=== PATIENT | female | born 1950 | race Caucasian/White ===

== ENCOUNTER 2025-04-21 09:27 | Emergency (ER) | payer MEDICARE, SELFPAY ==
--- OUTSIDE RECORDS SUMMARY | 2025-02-20 06:36 | XMS_ITS | Continuity of Care Document ---
Author Organization [facility]. If a dditional information is needed, contact Health Information Management at [phone] Address [address] [place] [address] Phone Care Team Providers Care Data Typist Name Role Phone Unavailable Unavailable Unavailable Unavailable Unavailable Unavailable Unavailable Unavailable Unavailable Unavailable Unavailable Unavailable Unavailable Unavailable Unavailable Unavailable Unavailable Unavailable Unavailable Unavailable Unavailable Unavailable Unavailable Unavailable Unavailable Unavailable Unavailable Unavailable Unavailable Unavailable Unavailable Unavailable Unavailable Unavailable Unavailable Unavailable Unavailable Problems Urinary tract infectious disease Onset:01-Apr-2023 Sebas Barber DO Comments:Onset Date: [id number] Unspecified contact dermatitis due to plants, except food Onset:23-Aug-2018 Nausea and vomiting Onset:13-May-2017 BRAAR Diarrhea Onset:13-May-2017 BRAAR Abdominal pain Onset:13-May-2017 BRAAR Essential (primary) hypertension Type 2 diabetes mellitus Disorder of thyroid, unspecified Allergies and Adverse Reactions Sulfamethoxazole(Allergy) Onset: 05-Sep-2023 Reaction:RASH Augmentin(Allergy) Onset: 20-Apr-2019 Reaction:severe yeast inf Augmentin(Allergy) Onset: 20-Apr-2019 Reaction:severe yeast inf Augmentin(Allergy) Onset: 20-Apr-2019 Reaction:severe yeast inf Augmentin(Allergy) Onset: 20-Apr-2019 Reaction:severe yeast inf Augmentin(Allergy) Onset: 20-Apr-2019 Reaction:severe yeast inf Augmentin(Allergy) Onset: 20-Apr-2019 Reaction:severe yeast inf Augmentin(Allergy) Onset: 20-Apr-2019 Reaction:severe yeast inf Augmentin(Allergy) Onset: 20-Apr-2019 Reaction:severe yeast inf trimethoprim(Allergy) Onset: 13-May-2017 Reaction:UNKNOWN Cipro(Allergy) Bactrim(Allergy) Reaction:Hives Bactrim(Allergy) Reaction:rash/hives Ciprofloxacin 250 MG Oral Ta blet [Cipro](Allergy) Reaction:yeast infection Medications 1 ML denosumab 60 MG/ML Prefilled Syringe [Prolia];60 MILLIGRAM TODAY Quantity:1 Raymond Lewis Maria R YANGN Start:[id number]:2024 Comments:[id number] Loratadine;10 MG Orally Once a day, 1 tablet Quantity:30 TRISTON SMITH Start:21-Jan-2025 Comments:10 MG Orally Once a day, 1 tablet 120 ACTUAT Fluticasone propionate 0.05 MG/ACTUAT Nasal Inhaler;50 MCG/ACT Nasally Once a day, 1 spray in each nostril Quantity:1 TRISTON SMITH Start:21-Jan-2025 Comments:50 MCG/ACT Nasally Once a day, 1 spray in each nostril Arexvy;120 MCG/0.5ML Intramuscular , as directed ok to subsitute with abrysvo Quantity:1 TRISTON SMITH Start:24-Jan-2024 Comments:120 MCG/0.5ML Intramuscular , as directed ok to subsitute with abrysvo Scopolamine;1 MG/3DAYS Transdermal , 1 patch to skin as needed Quantity:9 TRISTON SMITH Start:10-Nov-2023 Comments:1 MG/3DAYS Transdermal , 1 patch to skin as needed simvastatin 5 MG Oral Tablet Start:05-Sep-2023 aspirin 81 MG Chewable Tablet;81 MILLIGRAM PO DAILY Start:05-Sep-2023 Comments:81 MG PO DAILY losartan potassium 100 MG Oral Tablet [Cozaar];100 MILLIGRAM PO DAILY Start:05-Sep-2023 Comments:100 MG PO DAILY cephalexin 500 MG Oral Capsule;500 MILLIGRAM PO QID Start:01-Apr-2023 Status:Discontinued Comments:500 MG PO QID cephalexin 500 MG Oral Capsule;500 MILLIGRAM PO QID Start:01-Apr-2023 Status:Discontinued Comments:500 MG PO QID Betamethasone 0.5 MG/ML / Clotrimazole 10 MG/ML Topical Cream;1-0.05 % Externally Twice a day, 1 application to affected area Quantity:60 TRISTON SMITH Start:18-Dec-2018 Status:Inactive Comments:1-0.05 % Externally Twice a day, 1 application to affected area Acyclovir;400 MG Orally BID, 1 tablet Quantity:20 TRISTON SMITH Start:24-Nov-2018 Status:Inactive Comments:400 MG Orally BID, 1 tablet Amoxicillin 500 MG / Clavulanate 125 MG Oral Tablet [Augmentin];500-125 MG Orally BID, as directed Quantity:14 TRISTON SMITH Start:14-Nov-2018 Status:Inactive Comments:500-125 MG Orally BID, as directed NITROFURANTOIN, MACROCRYSTALS 25 MG / Nitrofurantoin, Monohydrate 75 MG Oral Capsule;100 MG Orally every 12 hrs, 1 capsule with food Quantity:14 TRISTON SMITH Start:07-Nov-2018 Status:Inactive Comments:100 MG Orally every 12 hrs, 1 capsule with food {10 (predniSONE 10 MG Oral Tablet) } Pack;prednisone Quantity:30 Refills:0 tablets by mouth as directed Anuel Powers Start:23-Aug-2018 Status:Inactive triamcinolone acetonide 5 MG/ML Topical Cream;0.5 % TOPICAL 12h Quantity:30 Refills:0 1 application apply on the skin twice a day Anuel Powers Start:23-Aug-2018 Status:Inactive Prilosec OTC;20 MG Orally Once a day, 1 tablet Quantity:90 TRISTON SMITH Start:20-Jun-2018 Comments:20 MG Orally Once a day, 1 tablet OneTouch Verio;- In Vitro Daily E11.65, as directed TRISTON SMITH Start:31-Mar-2018 Status:Inactive Comments:- In Vitro Daily E11.65, as directed Moe XR;50-1000 MG Orally Once a day, 2 tablets with evening meal TRISTON SMITH Start:31-Mar-2018 Status:Inactive Comments:50-1000 MG Orally Once a day, 2 tablets with evening meal levothyroxine sodium 0.075 MG Oral Tablet;75 MICROGRAM PO DAILY@0600 Start:13-Dec-2017 Comments:75 MCG PO DAILY@0600 amLODIPine 10 MG Oral Tablet;10 MILLIGRAM PO DAILY Start:13-Dec-2017 Comments:10 MG PO DAILY Nystatin;382222 UNIT/GM Externally Twice a day, 1 application to affected area Quantity:1 TRISTON SMITH Start:07-Nov-2017 Status:Inactive Comments:[id number] UNIT/GM Externally Twice a day, 1 application to affected area Vitamin B12;1000 MCG Orally Once a day, 1 tablet TRISTON SMITH Comments:1000 MCG Orally Onc e a day, 1 tablet Benefiber;- Orally , as directed TRISTON SMITH Status:Inactive Comments:- Orally , as directed POLYETHYLENE GLYCOL 3350 142 MG/ML Oral Solution [Miralax];- Orally , as directed TRISTON SMITH Comments:- Orally , as direc jaylen Loratadine Allergy Relief;orally QD, 1 tab(s) TRISTON SMITH Status:Inactive Comments:orally QD, 1 tab(s) Stool Softener;100 MG Orally Once a day, 1 capsule as needed Quantity:30 TRISTON SMITH Status:Inactive Comments:100 MG Orally Once a day, 1 capsule as needed Vitamin D3;50 MCG (2000 UT) Orally Once a day, 1 capsule TRISTON SMITH Comments:50 MCG (1999 UT) Or ally Once a day, 1 capsule Probiotic;- Orally , as directed TRISTON SMITH Comments:- Orally , as dire jaylen Vitamin C;1000 MG Orally Once a day, 1 tablet TRISTON SMITH Comments:1000 MG Orally Once a day, 1 tablet Multi For Her;- Orally , as directed TRISTON SMITH Comments:- Orally , as dire jaylen Calcium;600 MG Orally Twice a day, 1 tablet with meals TRISTON SMITH Comments:600 MG Orally Twice a day, 1 tablet with meals levothyroxine sodium 0.025 MG Oral Tablet;25 MCG NOT APPLICABLE 1d PO, Daily Polyglycol Leonardo Base powder;Polyglycol Leonardo Base powder , Status:Inactive alendronate;alendronate Quantity:0 Comments:alendronate metFORMIN hydrochloride 1000 MG / SITagliptin 50 MG Oral Tablet [Janumet];50-1,000 NOT APPLICABLE 1d 2 Tab PO, Daily Status:Inactive omeprazole 20 MG Delayed Release Oral Tablet;20 mg NOT APPLICABLE 1d PO, Daily Status:Inactive losartan potassium 100 MG Oral Tablet;100 mg NOT APPLICABLE 1d PO, Daily amLODIPine 10 MG Oral Tablet;10 mg NOT APPLICABLE 1d PO, Daily OneTouch Delica Plus Lancets;- Daily E11.65, as directed TRISTON SMITH Status:Inactive Comments:- Daily E11.65, as directed OneTouch Delica Plus Lancets;- , check sugar daily E11.9 Quantity:90 TRISTON SMITH Comments:- , check sugar henri ly E11.9 Calcium Citrate + D3 TRISTON SMITH Fiber TRISTON SMITH [place] 3 TRISTON SMITH Biotin TRISTON SMITH Status:Inactive Amlodipine Besylate;10 MG , TAKE 1 TABLET BY MOUTH EVERY DAY Quantity:90 TRISTON RIEDER Comments:10 MG , TAKE 1 TABL ET BY MOUTH EVERY DAY Levothyroxine Sodium;25 MCG , TAKE 1 TABLET BY MOUTH DAILY Quantity:90 TRISTON RIEDER Comments:25 MCG , TAKE 1 TAB LET BY MOUTH DAILY Omeprazole 20 MG Delayed Release Oral Capsule;20 MG , TAKE 1 CAPSULE BY MOUTH EVERY DAY TRISTON RIEDER Comments:20 MG , TAKE 1 CAPS ULE BY MOUTH EVERY DAY OneTouch Verlisa;- , check sugar daily E11.9 Quantity:90 TRISTON RIEDER Comments:- , check sugar henri ly E11.9 Aspirin 81 MG Chewable Tablet;81 MG , CHEW AND SWALLOW 1 TABLET BY MOUTH EVERY DAY TRISTON RIEDER Comments:81 MG , CHEW AND SW ALLOW 1 TABLET BY MOUTH EVERY DAY Zocor;40 MG , TAKE 1 TABLET BY MOUTH EVERY DAY IN THE EVENING Quantity:90 TRISTON RIEDER Comments:40 MG , TAKE 1 TABL ET BY MOUTH EVERY DAY IN THE EVENING Oxybutynin Chloride ER;15 MG , TAKE 1 TABLET BY MOUTH DAILY Quantity:90 TRISTON RIEDER Comments:15 MG , TAKE 1 TABL ET BY MOUTH DAILY MetFORMIN HCl ER;500 MG Orally Once a day, 1 tablet with evening meal TRISTON RIEDER Status:Inactive Comments:500 MG Orally Once a day, 1 tablet with evening meal Fosamax;70 MG Orally Once a week, 1 tablet 30 minutes before the first food, beverage or medicine of the day with plain water Quantity:4 TRISTON RIEDER Status:Inactive Comments:70 MG Orally Once a week, 1 tablet 30 minutes before the first food, beverage or medicine of the day with plain water ferrous sulfate 325 MG Oral Tablet;325 (65 Fe) MG Orally Once a day, 1 tablet TRISTON RIEDER Status:Inactive Comments:325 (65 Fe) MG Orally Once a day, 1 tablet Alendronate Sodium;70 MG Orally Once a Week, 1 tablet 30 minutes before the first food, beverage or medicine of the day with plain water TRISTON RIEDER Comments:70 MG Orally Once a Week, 1 tablet 30 minutes before the first food, beverage or medicine of the day with plain water Losartan Potassium 100 MG Oral Tablet;100 MG Orally Once a day, 1 tablet Quantity:90 TRISTON RIEDER Comments:100 MG Orally Once a day, 1 tablet 1 ML denosumab 60 MG/ML Prefilled Syringe [Prolia];60 MG/ML Subcutaneous , as directed TRISTON RIEDER Comments:60 MG/ML Subcutaneo us , as directed OneTouch Delica Plus Lancets;- Fingerstick BID, as directed Quantity:200 TRISTON SMITH Status:Inactive Comments:- Fingerstick BID, as directed aspirin;aspirin Quantity:0 Comments:aspirin Immunizations RSV recombinant (Arexvy) 60+ yrs Work [employer] ([employer]) Social History Smoking Status Never smoked tobacco Recorded: 01-Apr-2023 Never smoked tobacco Recorded: 13-May-2017 Results Ferritin ([id number]) Ordered On:21-Jan-2025 Comm ents:TRISTON SMITH 01/22/2025 09:27:47 PM CDT >blood counts normal, iron and iron stores normal, glucose kidneys liver electrolytes normal.PERFORMING LAB: [facility] [id number], Phone - [phone], Director - [facility] Ferritin [Mass/Vol]37ng/mL Range :15ng/mL-150ng/mL Iron and TIBC ([id number]) Ordered On:21-Jan-2025 Comments:TRISTON SMITH 01/22/2025 09:27:47 PM CDT >blood counts normal, iron and iron stores normal, glucose kidneys liver electrolytes normal.PERFORMING LAB: [facility] [address] [id number], Phone - [phone], Director - [facility] Iron saturation [Mas s fraction]23% Range:15%-55% Iron binding capacit y [Mass/Vol]305ug/dL Range:250ug/dL-450ug/dL Iron binding capacity.unsaturated [Mass/Vol]234ug/dL Range:118ug/dL-369ug/dL Iron [Mass/Vol]71ug/dL Range:27u g/dL-139ug/dL CBC With Differential/Platelet ([id number]) Ordered On:21-Jan-2025 Comments:TRISTON SMITH 01/22/2025 09:27:47 PM CDT >blood counts normal, iron and iron stores normal, glucose kidneys liver electrolytes normal.PERFORMING LAB: [facility] [address] [id number], Phone - [phone], Director - [facility] Immature granulocyte s Auto (Bld) [#/Vol]0.010*3/uL Range:010*3/uL-0.110*3/uL Basophils Auto (Bld) [#/Vol]0.110*3/uL Range:010*3/uL-0.210*3/uL Basophils/100 WBC Au to (Bld)1% Range:Not Estab. % MCHC Auto (RBC) [Mass/Vol]31.2g/dL(Low) Range:31.5g/dL-35.7g/dL Lymphocytes/100 WBC Auto (Bld)30% Range:Not Estab. % WBC Auto (Bld) [#/Vol]4.110*3/uL Range:3.410*3/uL-10.810*3/uL Immature granulocyte s/100 WBC Auto (Bld)1% Range:Not Estab. % Eosinophils Auto (Bl d) [#/Vol]0.110*3/uL Range:010*3/uL-0.410*3/uL Nucleated RBC/100 WB C Auto (Bld) [Ratio]AP PROCESSOR Lymphocytes Auto (Bl d) [#/Vol]1.210*3/uL Range:0.710*3/uL-3.110*3/uL Erythrocyte distribu tion width Auto (RBC) [Ratio]15.7%(High) Range:11.7%-15.4% Platelets Auto (Bld) [#/Vol]92126*3/uL Range:18303*3/uL-78255*3/uL Monocytes/100 WBC Au to (Bld)10% Range:Not Estab. % Hematocrit Auto (Bld ) [Volume fraction]38.8% Range:34%-46.6% Neutrophils Auto (Bl d) [#/Vol]2.310*3/uL Range:1.410*3/uL-710*3/uL Immature lymphocytes Ql (Bld)AP PROCESSOR MCV Auto (RBC) [Enti tic vol]89fL Range:79fL-97fL Eosinophils/100 WBC Auto (Bld)2% Range:Not Estab. % Hemoglobin (Bld) [Mass/Vol]12.1g/dL Range:11.1g/dL-15.9g/dL Neutrophils/100 WBC Auto (Bld)56% Range:Not Estab. % RBC Auto (Bld) [#/Vol]4.3710*6/uL Range:3.7710*6/uL-5.2810*6/uL Morphology Miguel (Bld) [Interp]AP PROCESSOR Monocytes Auto (Bld) [#/Vol]0.410*3/uL Range:0.110*3/uL-0.910*3/uL MCH Auto (RBC) [Enti tic mass]27.7pg Range:26.6pg-33pg Comp. Metabolic Panel (14) ([id number]) Ordered On:21-Jan-2025 Comments:TRISTON SMITH 01/22/2025 09:27:47 PM CDT >blood counts normal, iron and iron stores normal, glucose kidneys liver electrolytes normal.PERFORMING LAB: [facility] [address] [id number], Phone - [phone], Director - [facility] Sodium [Moles/Vol]141mmol/L Rang e:134mmol/L-144mmol/L Bilirubin [Mass/Vol]0.4mg/dL Ran ge:0mg/dL-1.2mg/dL Glucose [Mass/Vol]82mg/dL Range: 70mg/dL-99mg/dL Urea nitrogen/Creati nine [Mass ratio]14 Range:12-28 Chloride [Moles/Vol]104mmol/L Ra nge:96mmol/L-106mmol/L AST [Catalytic activity/Vol]21[IU]/L Range:0[IU]/L-40[IU]/L Protein [Mass/Vol]6.8g/dL Range: 6g/dL-8.5g/dL ALT [Catalytic activity/Vol]15[IU]/L Range:0[IU]/L-32[IU]/L Calcium [Mass/Vol]9.6mg/dL Range :8.7mg/dL-10.3mg/dL ALP [Catalytic activity/Vol]64[IU]/L Range:49[IU]/L-135[IU]/L Comments:Please note reference interval change Albumin [Mass/Vol]4.5g/dL Range: 3.8g/dL-4.8g/dL CO2 [Moles/Vol]24mmol/L Range:20 mmol/L-29mmol/L Creatinine [Mass/Vol]0.99mg/dL Range:0.57mg/dL-1mg/dL Urea nitrogen [Mass/Vol]14mg/dL Range:8mg/dL-27mg/dL Potassium [Moles/Vol]4.0mmol/L Range:3.5mmol/L-5.2mmol/L Globulin Calc (S) [Mass/Vol]2.3g/dL Range:1.5g/dL-4.5g/dL GFR/1.73 sq M.predic jaylen Creatinine-based formula (CKD-EPI 2020) (S/P/Bld) [Vol rate/Area]61mL/min/{1.73_m2} Range:59mL/min/{1.73_m2}-0 FECAL OCCULT BLOOD Ordered On:07-Nov-2024 08:38 FECAL OCCULT BLOODNEGATIVE Rang e:NEGATIVE FERRITIN Ordered On:05-Nov-2024 12:12 QPLXNPAO95.9ng/mL(Normal) Range :10ng/mL-291ng/mL FE W/TIBC %SAT Ordered On:05-Nov-2024 12:15 SERUM NEJU33sd/dL(Low) Range:35 ug/dL-150ug/dL IRON SATURATION9.1%(Low) Range:1 8%-50% TOTAL IRON BINDING DKRYTCWW067ie/dL(Normal) Range:280ug/dL-450ug/dL VITAMIN B12 Ordered On:05-Nov-2024 16:45 VITAMIN E50755ru/mL Range:200pg /mL-900pg/mL CBC AUTO DIFF/MAN IF INDICATED Ordered On:23-Jul-2024 11:40 BASOPHIL %2% BASOS ABSOLUTE0.110*3/uL(Normal) Range:010*3/uL-0.110*3/uL EOSINOPHIL %2% EOSINOPHILS ABSOLUTE0.110*3/uL(Normal) Range:010*3/uL-0.510*3/uL PVCHNNFFLN47.5%(Normal) Range:35 .2%-45.1% AHOMGQEMPD30.3g/dL(Low) Range:11 .5g/dL-15.3g/dL IMMATURE GRAN #0.010*3/uL(Normal) Range:010*3/uL-0.210*3/uL IMMATURE GRAN %1%(Normal) Range: 0%-1.5% Comments:Immature granulocytes (promyelocytes, myelocytes, andmetamyelocytes) >1.5% indicates that a left shift ispresent. Bands are included in the automated neutrophilcount and not in the IG fraction. LYMPHOCYTE %34% LYMPHOCYTE ABSOLUTE1.310*3/uL(Normal) Range:0.810*3/uL-410*3/uL MEAN CELL HGB26.8pg(Low) Range:2 7.2pg-33pg MEAN CELL HGB OEQAVZPXHYYF36.0g/dL(Low) Range:31.9g/dL-36.1g/dL MEAN CELL PARVED35.5fL(Normal) Range:81.8fL-97.9fL MONOS ABSOLUTE0.310*3/uL(Normal) Range:0.310*3/uL-1.210*3/uL MONOCYTE %8% MEAN PLATELET VOLUME9.7fL(Normal) Range:9.4fL-12.4fL NEUTROPHILS ABSOLUTE2.110*3/uL(Low) Range:2.310*3/uL-7.810*3/uL NEUTROPHIL %54% WQPUUOKN17229*3/uL(Normal) Range :87341*3/uL-89236*3/uL RED BLOOD CELL4.2210*6/uL(Normal) Range:3.910*6/uL-5.110*6/uL RDW15.1%(Normal) Range:11.9%-15. 1% WHITE BLOOD CELL3.810*3/uL(Low) Range:4.110*3/uL-11.110*3/uL METABOLIC COMPREHENSIVE PANEL Ordered On:23-Jul-2024 12:06 ALBUMIN3.5g/dL(Normal) Range:3 .5g/dL-4.8g/dL ALKALINE PHOSPHATASE UBERD28Y/L(Normal) Range:45U/L-132U/L SGPT/ALT21U/L(Normal) Range:12U/ L-78U/L SGOT/AST14U/L(Normal) Range:10U/ L-45U/L BILIRUBIN TOTAL0.3mg/dL(Normal) Range:0mg/dL-1mg/dL BLOOD UREA RMWSSRAQ25cl/dL(Normal) Range:6mg/dL-22mg/dL CALCIUM9.0mg/dL(Normal) Range:8. 5mg/dL-10.1mg/dL CORRECTED CALCIUM9.4mg/dL(Normal) Range:8.5mg/dL-10.1mg/dL Comments:CALCIUM CORRECTED FOR ALBUMIN MLEWJBMD301kygs/L(Normal) Range: 100mmol/L-108mmol/L CARBON VVNVKHN05tjnv/L(Normal) Range:21mmol/L-32mmol/L CREATININE0.9mg/dL(Normal) Range :0.5mg/dL-1.3mg/dL ANION GAP13(Normal) Range:12-21 GLOMERULAR FILTRATIO N RATE68.3 Range:60-0 Comments:The Glomerular Filtration Rate is a calculated parameterbased on serum Creatinine levels, patient age, and sex. GFRvalues less than 60 mL/min/1.73 square meters are indicativeof Chronic Kidney Disease. Values less than 15 mL/min/1.73square meters indicate Kidney failure.The calculation for GFR is based on the CKD-EPI(2021)calculation. This formula is race indifferent and is therecommended formula for GFR by the National KidneyFoundation for adults. GLUCOSE AHZEZL77au/dL(Normal) Ra nge:70mg/dL-99mg/dL POTASSIUM4.1mmol/L(Normal) Range :3.6mmol/L-5.2mmol/L UXMNPN330iwqf/L(Normal) Range:13 5mmol/L-146mmol/L TOTAL PROTEIN7.0g/dL(Normal) Ran ge:6.5g/dL-8.2g/dL LIPID PROFILE Ordered On:23-Jul-2024 12:06 TGPEVUFHOQI746et/dL(Normal) Ra nge:0mg/dL-199mg/dL HDL EPWDABYCFDT37lh/dL(Normal) Range:40mg/dL-60mg/dL LIPOPROTEIN BIG54sl/dL(Normal) Range:0mg/dL-129mg/dL CALCULATED NON HDL84 Range:SEE Michelle RUIZ Comments:INTERPRETIVE DATA FOR LIPID PANEL Normal Border-High High Very HighTriglyceride mg/dl <150 150-199 200-499 >500Cholesterol mg/dl <200 200-239 =/>240 Risk Low Average HighHDL Chol mg/dl >60 40-60 <40 Risk Factors 0-1 2+ CHD CHD/DiabeticPatient Goals LDL-calc mg/dl <160 <130 <100 <70 Xni-CGC-jgdz mg/dl <190 <160 <130 <100 Reference:1.Third Report of NCEP ATP III. MILVIA.2001;285:2486-14695.NON-H DL Their Risk Predictive Values in [place] Heart Disease. AM J Cardiol 2006;98:4983-0932 YTJQUPTSYPNNH103sk/dL(Normal) Ra nge:0mg/dL-149mg/dL THYROID STIMULATING HORMONE Ordered On:23-Jul-2024 12:06 THYROID STIMULATING HORMONE0.79uU/mL(Normal) Range:0.4uU/mL-4uU/mL GLYCO(A1C) WITH EAG Ordered On:23-Jul-2024 05:54 ESTIMATED AVERAGE BMOMXXX45js/dL Range:68mg/dL-114mg/dL Comments:HbA1c assay is certified to NGSP.eAG represents the calculation of estimated average glucoseas recommended by Diabetes Care 2008: 31: 1473. GLYCOSYLATED HEMOGLO BIN (HA1C)4.9% Range:4%-5.6% Comments:Please note: Diagnosis HbA1c(%) ++++++++++++++++++++++++++++++ ++++++++++++++++++ Diabetic >=6.5 Prediabetes 5.7-6.4 Normal <5.7 UA W/MICROS CULT IF INDICATE Ordered On:23-Jul-2024 16:01 UR APPEARANCEClear Range:Clear UR BILIRUBIN DIPSTICKNegativemg/dL(Normal) Range:Negative mg/dL UR BLD DIP (UADCUL COMPONENT)Negativemg/dL(Lexii l) Range:Negative mg/dL UR COLORLIGHT YELLOW Range:Yello w UR GLUCOSE DIPSTICKNegative Rang e:Negative UR KETONES DIPSTICKNegativemg/dL Range:Negative mg/dL UR LEUKOCYTE ESTERAS E CULTNegative{Marilyn/uL} Range:Negative Marilyn/uL UR NITRITE CULTURE REFLEXNegative(Normal) Range:Negative UR PH DIPSTICK5.5(Normal) Range: 5-9 UR PROTEIN (UADCUL COMPONENT)Negativemg/dL(Lexii l) Range:Negative mg/dL UR SPECIFIC GRAVITY<1.005(Normal) Range:1.003-1.035 UR UROBILINOGEN DIPSTICKNormalmg/dL(Normal) Range:Normal mg/dL URINE MICROALBUMIN QUANT Ordered On:23-Jul-2024 16:01 UR MICRO ALB/ML<5.0ug/mL Range :0ug/mL-20ug/mL UR MICRO ALB/CREAT RATIOug/mg Ra nge:0ug/mg-30ug/mg Comments:Micro Albumin <5.0Unable to calculate Micro Alb/CrMicro Albumin <5.0Unable to calculate Micro Alb/Cr U CREA MIC19.5mg/dL(Low) Range:2 0mg/dL-300mg/dL Vital Signs 20-Feb-2025 12:55 Vitkjq80rw Comments:61 Kgraaa75.455kg Comments:85.455 20-Feb-2025 12:54 Mjcvkujwebx83.9c Comments:35.9 Pulse66/min Comments:66 Respiratory Rate18/min Comments: 18 O2 SAT99% Comments:99 BP Daoehnwl497fv[Hg] Comments:14 1 BP Mnjjrgnvz01jy[Hg] Comments:83 21-Jan-2025 08:30 BMI35.52{index_val} BP Yvpwfbzc035yt[Hg] BP Lcqgktoib83yr[Hg] Pulse67/min O2 SAT97 Vbzaci45fk Ehvikx178.94cm Prldqs791sz Icccxh09.28kg 27-Aug-2024 14:40 BMI30.61{index_val} BP Mvvtktst203cz[Hg] BP Avnkrujei83ps[Hg] Pulse70/min O2 SAT97 Ravyqd97zp Yxrrrk155.94cm Yrceaa078ta Yvuufe03.48kg 23-Jul-2024 10:00 BMI31.55{index_val} BP Xyipijgh788ur[Hg] BP Xenckxiji49cj[Hg] Pulse67/min O2 SAT95 Rksyoi91bl Scdnmv032.94cm Wlztuw948rc Xsozdz00.75kg Encounters Ambulatory Encounter Reason:PROLIA -HAS HX Encounter Diagnosis:Age-related osteoporosis without current pathological fracture 20-Feb-2025 12:36Wn14-Bqq-6279 12:36 [facility] Discharge Disposition:Discharged to home or self care (routine discharge) Ambulatory Encounter Diagnosis:Acute transudative otitis media,Seasonal allergy,Patient encounter status,Body mass index (BMI) of 35,Morbid obesity,Mixed hyperlipidemia,Essential hypertension,Anemia,Acquired hypothyroidism,Overactive bladder,Obstructive sleep apnea syndrome,Senile osteoporosis 21-Jan-2025 08:14Mn34-Aiz-2779 08:[address] [place] [address] [facility] Comments:Acute effusion of left ear,Seasonal allergies,Dietary counseling and surveillance,Body mass index (BMI) of 35.0-35.9 in adult,Morbid obesity,Mixed hyperlipidemia,Essential hypertension,Mild anemia,Acquired hypothyroidism,OAB (overactive bladder),JUAN (obstructive sleep apnea),Age-related osteoporosis without current pathological fracture Ambulatory Encounter Reason:LABS Encounter Diagnosis:Anemia, unspecified 05-Nov-2024 11:25Db7-Cfv-8769 11:16 [facility] Discharge Disposition:Discharged to home or self care (routine discharge) Ambulatory Encounter Diagnosis:Overactive bladder,Body mass index (BMI) 30.0-30.9, adult,Patient encounter status,Body mass index 30+ - obesity,Anemia 27-Aug-2024 14:90Pp16-Fxh-9492 14:[id number] Comments:OAB (overactive bladder),Body mass index (BMI) of 30.0 to 30.9 in adult,Dietary counseling and surveillance,Obesity (BMI 30-39.9),Mild anemia Ambulatory Encounter Reason:N32.81 Encounter Diagnosis:Hypothyroidism, unspecified,Mixed hyperlipidemia,Age-related osteoporosis without current pathological fracture,Overactive bladder,Gastro-esophageal reflux disease without esophagitis,Type 2 diabetes mellitus without complications 23-Jul-2024 10:21To82-Uww-9394 10:55 [facility]position:Discharged to home or self care (routine discharge) Ambulatory Encounter Diagnosis:Patient encounter status,Body mass index (BMI) 31.0-31.9, adult,Patient encounter status,Body mass index 30+ - obesity,Overactive urinary bladder,Urinary incontinence,Acquired hypothyroidism,Mixed hyperlipidemia,Senile osteoporosis,Altered glucose metabolism due to diabetes,Gastroesophageal reflux disease without esophagitis,Chronic idiopathic constipation,Patient encounter status,Essential hypertension 23-Jul-2024 [id number] 10:00 [id number] Comments:Medicare annual wellness visit, subsequent,Body mass index (BMI) of 31.0 to 31.9 in adult,Dietary counseling and surveillance,Obesity (BMI 30-39.9),OAB (overactive bladder),Urinary incontinence in female,Acquired hypothyroidism,Mixed hyperlipidemia,Age-related osteoporosis without current pathological fracture,Type 2 diabetes mellitus without complication,Gastroesophageal reflux disease without esophagitis,Chronic idiopathic constipation,Breast screening,Essential hypertension Ambulatory 01-Apr-2023 ABIGAIL FARIAS (Attending) Ness Ambulatory 23-Aug-2018 ANUEL POWERS (Attending) Ness pre-admission 01-May-2015 13:00 [facility]
--- OUTSIDE RECORDS SUMMARY | 2025-04-21 09:34 | XMS_ITS | Data Portability ---
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 Plan of Treatment Reminders Order Date Submit Date Provider Last Modified By Organization Details Last Modified Time Details Appointments Establish ed diabetic/ ins pump 2025 10:15A M TE WATSON MD Not available Not available Not available Lab lipid panel, serum 2024 025 [facility], [address], [address], [place], [address], 01/08/2025 04:55:48 HbA1c (hemoglob in A1c), blood 2024 025 [facility], [address], [address], [place], [address], 01/08/2025 04:55:50 TSH + free T4, serum 2024 025 [facility], [address], [address], [place], [address], 01/08/2025 04:55:49 CMP, serum or plasma 2024 025 [facility], [address], [address], [place], [address], 01/08/2025 04:55:49 Referral None recorded. Procedures None recorded. Surgeries None recorded. Imaging None recorded. Medication Orders Accu-Chek Guide test strips 2024 025 [id number], [address] [place], [place], [id number], 01/07/2025 11:56:55 Patient TargetsNo targets recorded. Patient Instructions Encounter Date Encounter Id Patient Instructions Last Modified By Organization Details Last Modified Time 10/10/2023 [id number] Ms. Renee comes for evaluation of her blood sugar control and thyroid state.. Her recent laboratories that showed her hemoglobin A1c to be 5.3% on dietary therapy and her thyroid functions within the therapeutic range. 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 Will continue her current medications and have her return to clinic in 6 months. [email or web address] Not available 10/16/2023 16:15:30 01/07/2025 [id number] Ms. Renee comes for evaluation of her blood sugar control and thyroid state.. Her recent laboratories that showed her hemoglobin A1c to be 5.3% on dietary therapy and her thyroid functions within the therapeutic range. 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 Will continue her current medications and have her return to clinic in 6 months. [email or web address] Not available 01/06/2025 23:39:34 Reason for Referral None Reported. Results Created Date Observation Date Name Description Value Unit Range Abnormal Flag Note LastModifiedBy Organization Detail LastModifiedTime 01/08/2001/08/2025 LIPID PANEL , STAND SABAS cholesterol, total 156 mg/dL <200 normal Not Available [facility] [address] [facility] [place], [address], 01/08/2025 04:55:48 01/08/2001/08/2025 LIPID PANEL , STAND SABAS HDL cholesterol 76 mg/dL > or = 50 normal Not Available [facility] [address] [facility] [place], [address], 01/08/2025 04:55:48 01/08/2001/08/2025 LIPID PANEL , STAND SABAS triglyceride s 120 mg/dL <150 normal Not Available [facility] [address] [place], [address], 01/08/2025 04:55:48 01/08/2001/08/2025 LIPID PANEL , STAND SABAS LDL-choleste rol 59 mg/dL _(jeanine c) normal Refer ence range : <100 Jeanie able range <100 mg/dL for prima ry preve ntion ; <70 mg/dL for patie nts with CHD or diabe tic patie nts with > or = 2 CHD risk facto rs. LDL-C is now calcu lated using the Brooke n-Hop kins calcu latio n, which is a valid ated novel erick gonzalez r accur acy than the Fried amarilys equat ion in the estim ation of LDL-C . Brooke hutchins SS et al. MILVIA. 2013; 310(1 9): 2061- 2068 (http ://ed ucati on.Qu Laron [employer]. com/f aq/FA Q164) Not Available [facility] [address], [place], [address], 01/08/2025 04:55:48 01/08/2001/08/2025 LIPID PANEL , STAND SABAS chol/HDLC ratio 2.1 (calc ) <5.0 normal Not Available [facility] [address] [place], [address], 01/08/2025 04:55:48 01/08/2001/08/2025 LIPID PANEL , STAND SABAS non HDL cholesterol 80 mg/dL _(jeanine c) <130 normal For patie nts with diabe paulette plus 1 major ASCVD risk facto r, treat ing to a non-H DL-C goal of <100 mg/dL (LDL- C of <70 mg/dL ) is radha scherer optio n. Not Available [facility] [address] [place], [address], 01/08/2025 04:55:48 01/08/2001/08/2025 COMPR EHENS JAMI METAB OLIC PANEL glucose 86 mg/dL 65-139 normal Non-f astin g refer ence inter lacie Not Available [address], [address], 01/08/2025 04:55:49 01/08/2001/08/2025 COMPR EHENS JAMI METAB OLIC PANEL urea nitrogen (BUN) 16 mg/dL 7-25 normal Not Available [address], [address], 01/08/2025 04:55:49 01/08/2001/08/2025 COMPR EHENS JAMI METAB OLIC PANEL creatinine 0.91 mg/dL 0.60-1 .00 normal Not Available [address], [address], 01/08/2025 04:55:49 01/08/2001/08/2025 COMPR EHENS JAMI METAB OLIC PANEL eGFR 67 mL/mi n/1.7 3m2 > or = 60 normal Not Available [address], [address], 01/08/2025 04:55:49 01/08/2001/08/2025 COMPR EHENS JAMI METAB OLIC PANEL BUN/creatini ne ratio SEE NOTE: (calc ) 6-22 Not Repor jaylen: BUN and Creat inine are withi n refer ence range . Not Available [address], [address], 01/08/2025 04:55:49 01/08/2001/08/2025 COMPR EHENS JAMI METAB OLIC PANEL sodium 139 mmol/ L 135-14 6 normal Not Available [address], [address], 01/08/2025 04:55:49 01/08/2001/08/2025 COMPR EHENS JAMI METAB OLIC PANEL potassium 4.2 mmol/ L 3.5-5. 3 normal Not Available [address], [address], 01/08/2025 04:55:49 01/08/2001/08/2025 COMPR EHENS JAMI METAB OLIC PANEL chloride 102 mmol/ L 98-110 normal Not Available [address], [address], 01/08/2025 04:55:49 01/08/2001/08/2025 COMPR EHENS JAMI METAB OLIC PANEL carbon dioxide 26 mmol/ L 20-32 normal Not Available [address], [address], 01/08/2025 04:55:49 01/08/2001/08/2025 COMPR EHENS JAMI METAB OLIC PANEL calcium 10.1 mg/dL 8.6-10 .4 normal Not Available [address], [address], 01/08/2025 04:55:49 01/08/2001/08/2025 COMPR EHENS JAMI METAB OLIC PANEL protein, total 7.3 g/dL 6.1-8. 1 normal Not Available [address], [address], 01/08/2025 04:55:49 01/08/2001/08/2025 COMPR EHENS JAMI METAB OLIC PANEL albumin 4.6 g/dL 3.6-5. 1 normal Not Available [address], [address], 01/08/2025 04:55:49 01/08/2001/08/2025 COMPR EHENS JAMI METAB OLIC PANEL globulin 2.7 g/dL_ (calc ) 1.9-3. 7 normal Not Available [address], [address], 01/08/2025 04:55:49 01/08/2001/08/2025 COMPR EHENS JAMI METAB OLIC PANEL albumin/glob ulin ratio 1.7 (calc ) 1.0-2. 5 normal Not Available [address], [address], 01/08/2025 04:55:49 01/08/2001/08/2025 COMPR EHENS JAMI METAB OLIC PANEL bilirubin, total 0.7 mg/dL 0.2-1. 2 normal Not Available [address], [address], 01/08/2025 04:55:49 01/08/2001/08/2025 COMPR EHENS JAMI METAB OLIC PANEL alkaline phosphatase 55 U/L 37-153 normal Not Available [address], [address], 01/08/2025 04:55:49 01/08/2001/08/2025 COMPR EHENS JAMI METAB OLIC PANEL AST 20 U/L 10-35 normal Not Available [address], [address], 01/08/2025 04:55:49 01/08/2001/08/2025 COMPR EHENS JAMI METAB OLIC PANEL ALT 18 U/L 6-29 normal Not Available [address], [address], 01/08/2025 04:55:49 01/08/2001/08/2025 TSH+F REE T4 TSH 4.02 mIU/L 0.40-4 .50 normal Not Available [address], [address], 01/08/2025 04:55:49 01/08/2001/08/2025 TSH+F REE T4 T4, free 1.1 NG/dL 0.8-1. 8 normal Not Available [facility] [address] [place], [address], 01/08/2025 04:55:49 01/08/20 25 01/08/2025 HEMOG LOBIN A1C hemoglobin A1C 5.4 % <5.7 normal For the purpo se of evan porras for the prese nce of diabe paulette: <5.7% Consi stent with the absen ce of diabe paulette 5.7-6 .4% Consi stent with incre ased risk for diabe paulette (pred iabet es) > or =6.5% Consi stent with diabe paulette This assay resul t is consi stent with a decre ased risk of diabe paulette. Curre ntly, no conse nsus exist s trudy santa use of hemog lobin A1c for diagn osis of diabe paulette in child dre. Accor ding to Ameri can Diabe paulette Assoc iatio n (ADA) guide lines , hemog lobin A1c <7.0% repre sents optim al contr ol in non-p regna nt diabe tic patie nts. Diffe rent metri cs may apply to speci fic patie nt popul ation s. Stand ards of Medic al Care in Diabe paulette(A DA). Not Available [facility] [address] [place], [address], 01/08/2025 04:55:50 Result Notes None recorded. Problems Name Problem SNOMED Code Status Onset Date Resolution Date Notes Provider Name and Address Organization Details Recorded Time Well controlled type 2 diabetes mellitus 548442041 Active 2023 TE WATSON MD [address] [place], [address], [place] - [facility], [facility] 18:04:56 Postoperative hypothyroidism 17677863 Active 2023 TE WATSON MD [address] [place], [address], [place] - [facility], [facility] 18:05:13 Essential hypertension 46593143 Active 2023 TE WATSON MD [address] [place] [address], [address], [place] - [facility], [facility] 18:05:20 Mixed hyperlipidemia 600514661 Active 2023 TE WATSON MD [address] [place] [address], [address], [place] - [facility], [facility] 4 18:05:24 Problem Notes None recorded. Procedures Surgical History Date Name Laterality Status Provider Name and Address Organization Details Recorded Time 09/02/19 24 PHC Comprehensive Vestibular Report completed DONNELL REYNOLDS [address] [place] [address], [address], [place] - [facility], [facility] 09/02/2023 11:03:33 05/02/18 93 cholecystectomy completed TE WATSON MD [address] [place] [address], [address], [place] - [facility], [facility] 10/09/2023 18:00:10 05/02/18 83 thyroidectomy completed ET WATSON MD [address] [place] [address], [address], [place] - [facility], [facility] 10/09/2023 18:00:31 05/02/18 58 Tonsil/Adenoids completed TE WATSON MD [address] [place] [address], [address], [place] - [facility], [facility] 10/09/2023 17:59:57 Imaging Results None recorded. Procedure Notes None recorded. Medical Equipment None Reported. Allergies Allergen ID Allergen Name Allergen Category Reaction Reaction Severity Criticality Documentation Date Start Date Code Code System Note Provider Name and Address Organization Details Recorded Time 37291 Bactrim medicatio n hives Not available Not available 09/13/20152010 84831 9 RxNorm React ion: hives ; Not Available [facility] 6 07:25:13 276697 sulfameth oxazole / trimethop rim medicatio n Not available Not available Not available 01/01/2025 84864 RxNorm Not Available [facility] - [employer] [facility] [employer] - prod 5 10:01:35 123186 ciproflox acin medicatio n Not available Not available Not available 01/01/2025 2551 RxNorm Not Available [facility] - External Data [employer] - prod 5 10:01:35 44518 Cipro medicatio n other Not available Not available 09/13/2015201056 3 RxNorm React ion: yeast infec tion; Not Available [facility] 6 07:25:13 Medications Name Sig Start Date Stop Date Status Note LastModified by Organization Details LastModified Time metformin 500 mg tablet 12/04 completed metformi n Oral Tablet 500 mg; Recorded Status: Recorded on: 11/17/19 11 1:44PM; User: System; Est. Completi on: 12/05/19 11 Not Available Not Available Not Available oxybutyni n chloride ER 15 mg tablet,ex tended release 24 hr TAKE 1 TABLET BY MOUTH DAILY active Not Available Not Available No t Available oxybutyni n chloride ER 10 mg tablet,ex tended release 24 hr TAKE 1 TABLET BY MOUTH DAILY active Not Available Not Available No t Available alendrona te 70 mg tablet TAKE 1 TABLET BY MOUTH 1 TIME A WEEK 30 MINUTES BEFORE FIRST FOOD OR BEVERAGE OR MEDICINE OF THE DAY WITH WATER 10/09 completed Not Available Not Available Not Available Accu-Chek Softclix Lancets USE TO CHECK BLOOD SUGAR DAILY active Not Available Not Available No t Available simvastat in 40 mg tablet TAKE 1 TABLET BY MOUTH EVERY DAY IN THE EVENING active Not Available Not Available No t Available levothyro xine 25 mcg tablet TAKE 1 TABLET BY MOUTH DAILY active Not Available Not Available No t Available oxycodone -acetamin ophen 5 mg-325 mg tablet TAKE 1 TABLET BY MOUTH EVERY 6 HOURS NEEDED 01/07 completed Not Available Not Available Not Available citalopra m 20 mg tablet 11/28 completed citalopr am Oral Tablet 20 mg; Recorded Status: Recorded on: 11/17/19 11 1:44PM; User: System; Est. Completi on: 11/29/19 11 Not Available Not Available Not Available omeprazol e 10 mg capsule,d elayed release Take 1 capsule every day by oral route. active Not Available Not Available No t Available amlodipin e 10 mg tablet TAKE 1 TABLET BY MOUTH EVERY DAY active Not Available Not Available No t Available cephalexi n 500 mg capsule TAKE ONE CAPSULE BY MOUTH FOUR TIMES DAILY 10/09 completed Not Available Not Available Not Available simvastat in 20 mg tablet 11/29 completed simvasta tin Oral Tablet 20 mg; Recorded Status: Recorded on: 11/17/19 11 1:44PM; User: System; Est. Completi on: 11/30/19 11 Not Available Not Available Not Available oxybutyni n chloride ER 5 mg tablet,ex tended release 24 hr TAKE 1 TABLET BY MOUTH DAILY 01/07 completed Not Available Not Available Not Available lisinopri l 20 mg-hydroc hlorothia zide 25 mg tablet 11/26 completed lisinopr il-hydro chloroth iazide Oral Tablet 20-25 mg; Recorded Status: Recorded on: 11/17/19 11 1:44PM; User: System; Est. Completi on: 11/27/19 11 Not Available Not Available Not Available aspirin 81 mg chewable tablet CHEW AND SWALLOW 1 TABLET BY MOUTH EVERY DAY active Not Available Not Available No t Available scopolami ne 1 mg over 3 days transderm al patch APPLY 1 PATCH TO SKIN NEEDED FOR 30 DAYS 01/07 completed Not Available Not Available Not Available oxybutyni n chloride 5 mg tablet 11/06 completed oxybutyn in chloride Oral Tablet 5 mg; Recorded Status: Recorded on: 11/17/19 11 1:44PM; User: System; Est. Completi on: 11/07/19 11 Not Available Not Available Not Available losartan 100 mg tablet TAKE 1 TABLET BY MOUTH DAILY active Not Available Not Available No t Available fluticaso ne propionat e 50 mcg/actua tion nasal spray,lory pension SHAKE LIQUID AND USE 1 SPRAY IN EACH NOSTRIL DAILY active Not Available Not Available No t Available loratadin e 10 mg tablet TAKE 1 TABLET BY MOUTH DAILY active Not Available Not Available No t Available Ventolin HFA 90 mcg/actua tion aerosol inhaler 07/14 completed Ventolin HFA Inhalati on HFA Aerosol Inhaler 90 mcg/Actu ation; Recorded Status: Recorded on: 11/17/19 11 1:44PM; User: System; Est. Completi on: 07/15/19 11 Not Available Not Available Not Available Vitamin C active Not Available Not Roberta ilable Not Available calcium active Not Available Not Avail able Not Available omeprazol e active Not Available Not Available Not Available Fish Oil active Not Available Not Avai lable Not Available Vitamin D active Not Available Not Roberta ilable Not Available Iron (ferrous sulfate) active Not Available Not Available Not Available multivita min active Not Available Not Available Not Available Vitamin B12 active Not Available Not Available Not Available Prolia 60 mg/mL subcutane ous syringe Inject 1 mL by subcutan eous route. 01/07 completed Not Available Not Available Not Available Accu-Chek Guide test strips USE 1 STRIP EVERY DAY active Not Available Not Available No t Available Accu-Chek Guide Glucose Meter USE TO CHECK BLOOD GLUCOSE active Not Available Not Available No t Available OneTouch Delica Plus Lancet 33 gauge CHECK SUGAR DAILY active Not Available Not Available No t Available Vitals Date Recorded Body height Body mass index (BMI) Body weight Heart rate Systolic And Diastolic Provider Name and Address Organization Details Last Updated DateTime 10/10/2023 154.94 cm 27.6 kg/m2 71708.49 g 60 /min 126/78 mm[Hg] Cob[facility] 10/10/2023 11:03:36 Date Recorded Body weight Heart rate Systolic And Diastolic Provider Name and Address Organization Details Last Updated DateTime 01/07/2025 19616.18 g 54 /min 136/80 mm[Hg] Coby Gomez [facility], [facility] 01/07/2025 11:35:15 Social History None recorded. Functional Status Question Answer Note LastModified by Organizat ion Details LastModified Time Do you use any illicit or recreational drugs? No [email or web address] Information not available 10/09/2023 Do you or have you ever used any other forms of tobacco or nicotine? No [email or web address] Information not available 10/09/2023 What is your level of alcohol consumption? Occasional [email or web address] Information not available 10/09/2023 Mental Status None recorded. Family History Relationship Description Onset Age of this Age Resolved Age Notes LastModified by Organization Details LastModified Time Mother Malignant neoplasm of lung [email or web address] Not available 2024 10:58:48 Mother Diabetes mellitus [email or web address] Not available 10/08 18:01:40 Maternal Grandfather Diabetes mellitus [email or web address] Not available 10/08 18:01:40 Father Aneurysm [email or web address] Not available 0 01/07/2025 10:58:48 Medical History Condition Response Diabetes Y Thyroid Problems Y Hypertension Y High Cholesterol Y Gynecological HistoryNo gynecological history recorded. Obstetrics History GPAL:G 0 P 0 0 0 0 Past Encounters Encounter ID Performer Location Encounter Start Date Encounter Closed Date Diagnosis/Indication Diagnosis SNOMED-CT Code Diagnosis ICD10 Code Diagnosis IMO Codes Diagnosis Note [id number] [facility] [address] [facility] [address] [place] [address] 11/16/2010 00:00:00 [id number] [employer], [facility]( INACTIVE) [address] [facility] [place] [address] 09/02/2023 08:55:17 09/02/2023 11:05:44 Dizziness 549871580 R42 Sensorineu ral hearing loss 73420883 H90.3 [id number] MD Iker BILLS [address] [place] [address] 10/10/2023 10:30:24 10/17/2023 09:39:06 Well controlled type 2 diabetes mellitus 380205898 E11.9 Postoperat jami hypothyroidism 44658863 E89.0 Essential hypertension 68156742 I10 Mixed hyperlipidemia 267 566968 E78.2 [id number] MD Iker BILLS [address] [place] [address] 01/07/2025 10:58:46 01/11/2025 07:24:10 Well controlled type 2 diabetes mellitus 331024179 E11.9 Postoperat jami hypothyroidism 50087992 E89.0 Essential hypertension 88356706 I10 Mixed hyperlipidemia 267 612966 E78.2 Health Concerns Section Related Observation LastModified by Organization Detai ls LastModified Time None Recorded Concern Status LastModified by Organization Details LastModified Time None Recorded Advance Directives Directive None Recorded Payers Insurance Date Sequence Insurance Name Policy Number Policy Alvarez Covered Member ID Alvarez Member ID Guarantor Name 04/09/2024 1 [facility] (MEDICARE REPLACEMENT/A DVANTAGE - PPO) [id number] Laureen Renee [id number] Laureen Renee 04/09/2024 1 *SELF PAY* Thai Renee 01/11/2025 1 [facility] (MEDICARE REPLACEMENT/A DVANTAGE - PPO) [id number] Laureen Renee [id number] Laureen Renee Notes Date Note Type Note Provider Name and Address Organization Details Recorded Time 10/10/2023 text/html Patient presents with a history of Type 2 Diabetes and is here for evaluation. The diabetes has been present since 03/2018. Patient presented initially with abnormal lab test elevated blood sugar. The patient also complains of . Diabetic regimen is diet. Last hbA1c shows a result of 5.3%.Self monitoring:qd.Cur rent diet:ADA.Current exercise:.Eye exam: last exam was:03/02/2022, results were .Foot checks:performed daily by patient.Diabetes education:.The diabetes is managed by compliance with:diet.Glycemi c monitoring:.Frequ ency of testing:qd.Blood sugar average:89.Glycem ic range:.Hypoglycem ic episodes:none.THY ROIDThe patient comes for evaluation of a thyroid condition. Today, patient complains of . The abnormal thyroid state has been present since 1981. The patient presents with . Previous evaluation shows . Current therapy with levothyroxine. TE WATSON MD [address] [place] [address], [phone], [facility], [facility] 10/16/2023 16:15:39 01/07/2025 text/html Patient presents with a history of Type 2 Diabetes and is here for evaluation. The diabetes has been present since 03/2018. Patient presented initially with abnormal lab test elevated blood sugar. The patient also complains of . Diabetic regimen is diet. Last hbA1c shows a result of 5.3%.Self monitoring:qd.Cur rent diet:ADA.Current exercise:.Eye exam: last exam was:03/02/2022, results were .Foot checks:performed daily by patient.Diabetes education:.The diabetes is managed by compliance with:diet.Glycemi c monitoring:.Frequ ency of testing:qd.Blood sugar average:89.Glycem ic range:.Hypoglycem ic episodes:none.THY ROIDThe patient comes for evaluation of a thyroid condition. Today, patient complains of . The abnormal thyroid state has been present since 1981. The patient presents with . Previous evaluation shows TSH 2.72. Current therapy with levothyroxine. TE WATSON MD [address] [place] [address], [address], [facility], [facility] 01/07/2025 18:48:08 OBGyn Episode No OBEpisode recorded.
[2025-04-21 09:37] VITALS: BP 132/74; PULSE 73; RESP 16; TEMP 36.1; O2SAT 99
--- NOTE | 2025-04-21 10:09 | ED_ITS ---
HPI - URI/Sore Throat General Chief Complaint: Upper Respiratory Infection Stated Complaint: Cough/Fatigue Time Seen by Provider: 04/21/25 10:10 Source: patient, RN notes reviewed and old records reviewed Mode of arrival: ambulatory Limitations: no limitations History of Present Illness HPI Narrative: 74 [facility] complaints of cough and fatigue since Tuesday. Patient reports no fevers, has had some body aches, denies any shortness of breath some cough with congestion. Patient did home COVID test this morning and was positive. States really didn't believe it was accurate and didn't really know if she was still contagious. MD elicited complaint: cough Onset (ago): day(s) (5 days) Severity: mild Able to tolerate fluids by mouth: Yes Treatments prior to arrival: acetaminophen Related Data Home Medications ?Medication ?Instructions ?Recorded ?Confirmed ?Last Taken ?Type amlodipine 10 mg tablet mg 04/21/25 Unknown History blood-glucose meter (Accu-Chek 04/21/25 04/21/25 Unkn own History Guide Glucose Meter) fluticasone propionate 50 intranasal 04/21/25 Unknown History mcg/actuation nasal spray,suspension lancets (Accu-Chek Softclix 04/21/25 04/21/25 Unknown History Lancets) levothyroxine 25 mcg tablet mcg 04/21/25 Unknown Hist ory loratadine 10 mg tablet mg 04/21/25 Unknown History losartan 100 mg tablet mg 04/21/25 Unknown History oxybutynin chloride 10 mg mg PO 04/21/25 Unknown Hist ory tablet,extended release 24 hr simvastatin 40 mg tablet mg 04/21/25 Unknown History Allergies Allergy/AdvReac Type Severity Reaction Status Date / Time ciprofloxacin (From Cipro) Allergy Intermediate Rash Verified 04/21/25 10:35 sulfamethoxazole (From Allergy Intermediate Rash Verified 04/21/25 10:35 Bactrim) trimethoprim (From Bactrim) Allergy Intermediate Rash Verified 04/21/25 10:35 Review of Systems Review of Systems: CONSTITUTIONAL: Reports malaise,no chills, sweats, or fever. EYES: Denies visual changes, redness, or discharge. ENT: Reports rhinorrhea, congestion,no sinus pain, no otalgia and no sore throat. CARDIOVASCULAR: Denies chest pain, palpitations, or edema. RESPIRATORY: Reports cough.? Denies dyspnea. GASTROINTESTINAL: Denies abdominal pain, nausea, vomiting, diarrhea SKIN: Denies rash or itching. MUSCULOSKELETAL: reports myalgia. NEUROLOGIC: Denies headache. All systems reviewed & are unremarkable except as noted in HPI and below PMFSH Past Medical History Medical History (Updated 04/22/25 @ 18:38 by Aishwarya Obando APRN) Overactive bladder Diabetes High blood cholesterol Hypertension Social History Social History (Updated 04/22/25 @ 18:37 by Aishwarya Obando APRN) Smoking status: Never smoker Alcohol intake: current Alcohol use details: rare Substance use type: does not use Gender identity (if verbalized by the patient): Female Comments At time of signature, agree with nursing past medical, surgical, social and family history. There is no relevant family history pertinent to the presenting complaint Exam Narrative: GENERAL: Well-appearing, well-nourished, and in no acute distress. HEAD: Normocephalic EYES: PERRLA, conjunctivae clear ENT: Nares clear, turbinates edematous and erythematous, clear discharge. Mucous membranes moist. TM pearly spangler with dull light reflex bilaterally; no tragal tenderness. Oropharynx erythematous without lesions. Tonsils not enlarged and without exudate, no drooling, no hoarseness, no trismus, uvula midline.some post nasal drainage NECK: Supple. No lymphadenopathy CHEST: Clear to auscultation, breath sounds equal. No wheezing, rhonchi, rales, or stridor. No respiratory distress, speaks in full sentences.cough noted SAO2 99% on room air HEART: Regular rate and rhythm. No murmur heard. SKIN: Warm, dry, no rash. NEURO: Alert and oriented x3. PSYCH: Normal mood and affect Course Course Level of Care: Express Care Visit Vital Signs Vital signs: Vital Signs Temperature 36.1 C L 04/21/25 09:37 Pulse Rate 73 04/21/25 09:37 Respiratory Rate 16 04/21/25 09:37 Blood Pressure 132/74 04/21/25 09:37 Pulse Oximetry 99 04/21/25 09:37 Oxygen Delivery Room Air 04/21/25 09:37 Temperature 36.1 C L 04/21/25 09:37 Pulse Rate 73 04/21/25 09:37 Respiratory Rate 16 04/21/25 09:37 Blood Pressure 132/74 04/21/25 09:37 Pulse Oximetry 99 04/21/25 09:37 Oxygen Delivery Room Air 04/21/25 09:37 reviewed MDM MDM Narrative Medical decision making narrative: Patient had home test which was positive and has not had any fevers for over 24 hours without use of antipyretic medication. Advised patient of CDC guideline and patient is on day 5 of symptoms. Patient is aware of diagnosis, understands and agrees to treatment plan. Anticipatory guidance given. Patient agrees to follow-up as directed and is aware of reasons to seek care at the emergency department. Portions of this record may have been created with voice recognition software Differential Diagnosis Differential Diagnosis: Differential diagnostic considerations for upper respiratory infection include upper respiratory infection, croup, otitis media, sinusitis, viral infection, bronchitis, influenza, pharyngitis, strep, uvulitis.? Critical Care Time Critical Care Time Critical Care Time: No Discharge Plan Discharge Clinical Impression: COVID-19 Patient Disposition: Home Condition: Stable Instructions: How to Recover from COVID-19 at Home (ED) Additional Instructions: Increase fluids especially juices and water [id number] cough and cold medicine of your choice for your symptoms Zyrtec Claritin or Carmina daily may include Coricidin brand decongestant Tylenol or ibuprofen for any fever pain for package directions heat to the face 20-30 minutes 4-6 times a day for pain Salt water gargles, throat lozenges or throat sprays as desired If your symptoms persist, change or worsen significantly before you can contact your personal physician then please, without delay, go to the emergency department for further evaluation. Follow-up with PCP in 7-10 days or sooner if needed Follow up with PCP soon in regards to your blood pressure which is elevated above threshold for referral. Blood pressure above 120/80 may indicate pre- hypertension. 132/74 COVID-19 DISCHARGE The following recommendations have been made by the CDC and local Health Departments, regarding COVID-19: Those individuals with mild cases of COVID-19 can generally be discontinued from isolation, 5 days AFTER the onset of symptoms AND the resolution of fever for 24hrs (without the use of fever-reducing medications) Those individuals who were asymptomatic, and tested positive, are discontinued from isolation 10 days AFTER their first positive COVID-19 test Those individuals with SEVERE to CRITICAL illness or immunocompromised diseases may require up to 20 days of home isolation or hospitalization Majority of mild to moderate cases can be treated at home, without hospi talization or prescription medications You do not need a negative test result to return to work/school, assuming the above recommendations have been met and you are not symptomatic. At this time, return to work/school notes will not be provided. Guidelines from the local Health Department, CDC, and workplace are expected to be followed. All individuals in the household need to remained quarantined for up to 14 days if asymptomatic OR 10 days after the start of symptoms. Everyone in the home DOES NOT require testing, they are presumed positive and should quarantine as directed. Treating symptoms for mild to moderate cases may include: Tylenol, Flonase/nasal spray, OTC cold/flu medications recommended from your provider or any necessary prescription medications provided at your visit or from your PCP IF YOU TESTED NEGATIVE If you are symptomatic with reason to believe you have COVID-19, there is a high possibility your rapid test may not have detected the virus. Rapid testing is dependent on timing and viral load and may have a false- negative reading You should follow appropriate guidelines regarding quarantine, hand washing, mask wearing, and social distancing You may be sent for PCR testing as an outpatient to the [place] testing site Common Adult Symptoms: Fever/chills Cough Shortness of breath Fatigue, muscle aches Headache Loss of taste/smell Sore throat, congestion, runny nose GI symptoms (nausea, vomiting, diarrhea) Common Pediatric Symptoms Cough Fever GI symptoms (diarrhea, upset stomach, nausea, vomiting) Symptoms may differ in severity however, most cases do not require hospitalization. WHEN TO SEEK ER EVALUATION/TREATMENT Severe/persistent shortness of breath or difficulty breathing Elevated, persistent fevers without resolution with fever-reducing medications Chest pain Extreme fatigue/lethargy Complications of pre-existing disease Patient Language: [place] Prescriptions: No Action (DME) blood-glucose meter [Accu-Chek Guide Glucose Meter] Mis MISCELLANEOUS oxybutynin chloride 10 mg tablet extended release 24hr PO simvastatin 40 mg tablet levothyroxine 25 mcg tablet (DME) lancets [Accu-Chek Softclix Lancets] Misc MISCELLANEOUS amlodipine 10 mg tablet losartan 100 mg tablet fluticasone propionate 50 mcg/actuation spray,suspension INTRANASAL loratadine 10 mg tablet Follow-up/Referrals: PHYSICIAN NOT ON STAFF,NONSTAFF [Primary Care Provider] Time of Disposition: 10:24 Quality Faith Coma Scale Eyes: Open Verbal: Oriented and Alert Motor: Follows Commands [place] Coma Total Score: 15
== END 2025-04-21 10:39 | disposition home or self-care (01) ==
PROVIDERS: Emergency Provider Registered Nurse
DX: U07.1 COVID-19 (principal); E11.9 Type 2 diabetes mellitus without complications; I10 Essential (primary) hypertension; E78.00 Pure hypercholesterolemia, unspecified; N32.81 Overactive bladder
CPT/HCPCS: 99202; G0463